=== PATIENT | female | born 1985 | race Caucasian/White ===

== ENCOUNTER 2017-05-08 20:40 | Emergency (ER) | payer MEDICAID ==
[~2017-05-08] VITALS: Ht 162.6 cm; Wt 83.9 kg
[2017-05-08 20:40] VITALS: BP_SYST 133
--- NOTE | 2017-05-08 20:40 | NUR ---
PT IN WAITING ROOM AWAITING AVAILABLE BED. STABLE.
--- NOTE | 2017-05-08 21:42 | NUR ---
Patient to ER bed 2 to gown for evaluation. Side rails up. Report given to REMINGTON RANDALL.
--- NOTE | 2017-05-08 21:43 | NUR ---
Note kyle in ED - 05/08/17 at 2144 by JIMENEZ Patient to ER bed 2 to yousuf for evaluation. Side rails up. Report given to Imtiaz MACEDO.
--- NOTE | 2017-05-08 21:52 | NUR ---
Patient to ED for evaluation of flu like symptoms, has finished a course of Zithromax without relief of symptoms. Patient to bed 2 to await MD evaluation, patient has IUP x 20 weeks. OK by EAR NOSE THROAT PHYSICIAN to be seen in ED for workup. Will continue to observe and assess
--- NOTE | 2017-05-08 22:06 | NUR ---
FHT's via doppler rate of 110.
--- NOTE | 2017-05-08 22:35 | NUR ---
Dr Burgess at bedside to evaluate patient
[2017-05-08] MEDS ORDERED: ALBUTEROL SULFATE 0.083% 2.5 MG/3 ML VIAL.NEB INH ONE (22:45)
[2017-05-08] MEDS ORDERED: PREDNISONE 20 MG TABLET PO ONE (22:45)
[2017-05-08] MEDS ORDERED: NACL 0.9% 1,000 ML IV ONE (23:15)
[2017-05-08 23:28] LABS: BASOPHILS # (AUTO) 0.1 K/uL (0.0-0.2); BASOPHILS % (AUTO) 0.5 % (0.0-2.0); EOSINOPHILS # (AUTO) 0.1 K/uL (0.0-0.4); EOSINOPHILS % (AUTO) 0.3 % (0.0-4.0); HEMATOCRIT 39.1 % (36-48); HEMOGLOBIN 13.4 g/dL (12.0-16.0); LYMPHOCYTES # (AUTO) 3.7 K/uL (1.0-5.5); LYMPHOCYTES % (AUTO) 17.8 % (20.5-51.5); MEAN CORPUSCULAR HEMOGLOBIN 30 pg (27-31); MEAN CORPUSCULAR HGB CONC 34 % (32-36); MEAN CORPUSCULAR VOLUME 88 fL (79.0-98.0); MONOCYTES # (AUTO) 0.7 K/uL (0.0-1.0); MONOCYTES % (AUTO) 3.2 % (1.7-9.3); NEUTROPHILS # (AUTO) 16.1 K/uL (1.8-7.7); NEUTROPHILS % (AUTO) 78.2 % (40.0-70.0); PLATELET COUNT (AUTO) 269 K/uL (130-430); RED BLOOD CELL COUNT(AUTO) 4.44 MIL/uL (4.2-6.2); RED CELL DISTRIBUTION WIDTH 13.7 % (9.0-15.0); WHITE BLOOD COUNT (AUTO) 20.7 K/uL (4.8-10.8)
[2017-05-08 23:39] LABS: CALCIUM 8.9 mg/dL (8.4-11.0); CREATININE 0.66 mg/dL (0.55-1.30); POTASSIUM 3.3 mmol/L (3.5-5.1)
[2017-05-08 23:44] LABS: TOTAL BILIRUBIN 0.4 mg/dL (0.0-1.0); TOTAL PROTEIN, SERUM 7.4 g/dL (6.4-8.3)
--- NOTE | 2017-05-08 23:57 | NUR ---
IVF infusing without difficulty via right AC, no redness or swelling noted at IV site. Will continue to observe and assess.
--- NOTE | 2017-05-09 02:06 | NUR ---
IVF bolus completed-patient tolerated well. HR decreased after fluids-patient to and returned from x-ray department for films in stable condition. Awaiting lab results and dispo.
[2017-05-09 03:14] LABS: BLOOD GAS BASE EXCESS -2.6 mmol/L (-3.0-3.0); BLOOD GAS PH 7.426 (7.350-7.450)
[2017-05-09 03:15] LABS: ABG TOTAL HEMOGLOBIN 12.9 G/dL (12.0-18.0); BLOOD GAS COHb% 0.1 % (0.5-1.5); BLOOD GAS HHB 3.9 % (0.0-6.0); BLOOD O2Hb% 95.7 % (94.0-97.0)
[2017-05-09] MEDS ORDERED: ACET-2165 PO (03:15)
[2017-05-09] MEDS ORDERED: [UNRECOGNIZED DRUG - CODE] PO (03:15)
[2017-05-09] MEDS ORDERED: ALBMDI INH (03:15)
[2017-05-09 03:16] LABS: BILIRUBIN,URINE NEGATIVE (NEGATIVE); BLOOD, URINE NEGATIVE (NEGATIVE); CLARITY/URINE CLEAR (CLEAR); COLOR,URINE YELLOW (YELLOW); GLUCOSE,URINE NEGATIVE (NEGATIVE); KETONES,URINE 2+ (NEGATIVE); LEUKOCYTE ESTERASE ,URINE NEGATIVE (NEGATIVE); NITRITE, URINE NEGATIVE (NEGATIVE); PROTEIN URINE NEGATIVE (NEGATIVE); UROBILINOGEN,URINE 0.2 (0.2-1.0)
--- NOTE | 2017-05-09 03:45 | NUR ---
Pt awake and alert vss.
--- NOTE | 2017-05-09 05:25 | NUR ---
Patient resting quietly. No acute distress noted. Vital signs within normal range.
[2017-05-09 06:30] VITALS: BP_SYST 123
--- NOTE | 2017-05-09 06:36 | NUR ---
Patient given written and verbal discharge instructions and verbalizes understanding. ER MD discussed with patient the results and treatment provided. Patient in stable condition. ID arm band removed. IV catheter removed intact and dressing applied, no active bleeding. NO Rx given. Patient educated on pain management and to follow up with PMD. Pain Scale 0/10. Opportunity for questions provided and answered.
== END 2017-05-09 06:30 | disposition home or self-care (01) ==
LOC: SED 20:40
DX: O99.512 Diseases of the respiratory system complicating pregnancy, second trimester (principal); J40 Bronchitis, not specified as acute or chronic; D72.829 Elevated white blood cell count, unspecified; Z3A.20 20 weeks gestation of pregnancy; Z88.0 Allergy status to penicillin
CPT/HCPCS: 36415; 36600; 71020; 80053; 81003; 82803; 83605; 84702; 85025; 94640; 96360; 99285; J7030; J7512